=== PATIENT | female | born 1985 | race African-American/Black ===

== ENCOUNTER 2019-08-18 08:19 | Emergency (ER) | payer MEDICAID, OTHER ==
[~2019-08-18] VITALS: Ht 167.6 cm; Wt 81.4 kg
[2019-08-18 08:21] VITALS: BP 142/89
[2019-08-18] MEDS ORDERED: SODIUM CHLORIDE FLUSH 10ML SYR IVF ONE (09:30)
[2019-08-18] MEDS ORDERED: FAMOTIDINE 20 MG/2 ML IVPush ONE (09:30)
[2019-08-18] MEDS ORDERED: ONDANSETRON 2MG/ML, 2ML IVPush ONE (09:30)
[2019-08-18] MEDS ORDERED: MORPHINE SULFATE 4 MG/ML, 1ML IVPush PRN (09:30)
[2019-08-18] MEDS ORDERED: ONDANSETRON 2MG/ML, 2ML ONE (09:54)
[2019-08-18] MEDS ORDERED: FAMOTIDINE 20 MG/2 ML ONE (09:54)
[2019-08-18 10:11] LABS: ALBUMIN 3.9 g/dL (3.4-5.0); ANION GAP 6 mmol/L (5-15); CALCIUM 8.7 mg/dL (8.5-10.1); CHLORIDE 109 mmol/L (98-107); CREATININE 0.82 mg/dL (0.55-1.02)
--- NOTE | 2019-08-18 10:11 | NUR ---
NOTED PT SLEPT THROUGH AND WAS SNORING DURING THE ENTIRE US IV START
[2019-08-18 10:16] LABS: ALKALINE PHOSPHATASE 79 U/L (45-117); BILIRUBIN,TOTAL 0.4 mg/dL (0.2-1.0); TOTAL PROTEIN 7.6 g/dL (6.4-8.2)
[2019-08-18 10:17] LABS: ALANINE AMINOTRANSFERASE 29 U/L (12-78)
--- NOTE | 2019-08-18 10:17 | NUR ---
PT CO PAIN ERP AWARE NO NEW ORDERS
[2019-08-18 10:28] LABS: BASOPHILS # (AUTO) 0.02 x10^3/uL (0-0.1); BASOPHILS % (AUTO) 0 % (0-1); EOSINOPHILS # (AUTO) 0.07 x10^3/uL (0-0.4); EOSINOPHILS % (AUTO) 1 % (1-7); LYMPHOCYTES # (AUTO) 1.07 x10^3/uL (1-3.4); LYMPHOCYTES % (AUTO) 20 % (22-44); MD NO; MEAN CORPUSCULAR HGB CONC 31.4 g/dL (32.4-35.8); MEAN CORPUSCULAR VOLUME 85.9 fL (80-100); MEAN PLATELET VOLUME 9.7 fL (7.4-10.4); MONOCYTES # (AUTO) 0.12 x10^3/uL (0.2-0.8); MONOCYTES % (AUTO) 2 % (2-9); NEUTROPHILS # (AUTO) 3.98 x10^3/uL (1.8-6.8); NEUTROPHILS % (AUTO) 76 % (42-75); PLATELET COUNT 125 x10^3/uL (130-400); RED BLOOD COUNT 4.04 x10^6/uL (3.82-5.3); RED CELL DISTRIBUTION WIDTH 17.1 % (9.6-15.2)
--- NOTE | 2019-08-18 11:07 | NUR ---
REPORTED TO ERP PT CO PAIN ERP TO SEE PT
[2019-08-18 11:19] LABS: MICROSCOPIC NOT IND
[2019-08-18 11:24] LABS: CULTURE INDICATED? NO
== END 2019-08-18 12:03 | disposition home or self-care (01) ==
LOC: ED 09:06
DX: J18.1 Lobar pneumonia, unspecified organism (principal); R11.2 Nausea with vomiting, unspecified; K59.00 Constipation, unspecified; K21.9 Gastro-esophageal reflux disease without esophagitis
CPT/HCPCS: 36415; 74022; 80053; 81003; 83690; 84703; 85025; 96374; 96375; 99284; J2405; J3490